=== PATIENT | female | born 1995 ===

== ENCOUNTER 2018-03-17 07:35 | Outpatient (CLI) | payer OTHER | END 2018-03-17 07:36 | disposition home or self-care (01) | LOC: BICULT 07:35 | PROVIDERS: ATTEND Family Medicine | DX: O44.43 Low lying placenta NOS or without hemorrhage, third trimester (principal); Z3A.35 35 weeks gestation of pregnancy | CPT/HCPCS: 76816 ==

== ENCOUNTER 2018-04-02 06:31 | Outpatient (CLI) | payer OTHER | END 2018-04-02 06:32 | disposition home or self-care (01) | LOC: BICULT 06:31 | PROVIDERS: ATTEND Family Medicine | DX: O09.893 Supervision of other high risk pregnancies, third trimester (principal); Z3A.37 37 weeks gestation of pregnancy | CPT/HCPCS: 76816 ==

== ENCOUNTER 2018-04-21 03:37 | Inpatient (IN) | payer OTHER ==
[2018-04-21 04:04] VITALS: BMI 47.3
[2018-04-21] MEDS: Lactated Ringer's 1,000 ML IV SCH ×3 (04:44→11:36)
[2018-04-21] MEDS ORDERED: Butorphanol Tartrate 1 MG/ML VIAL SLOW IVP PRN ×2 (04:53→05:25)
[2018-04-21] MEDS ORDERED: Ibuprofen 800 MG TAB PO PRN (05:00)
[2018-04-21] MEDS ORDERED: NS / Oxytocin 40 units/1000ml 1,000 ML IV SCH ×2 (05:00→20:12)
[2018-04-21] MEDS ORDERED: HYDROcodone/Acetaminophen 5/325 mg Tablet PO PRN ×4 (05:00→20:12)
[2018-04-21] MEDS ORDERED: Misoprostol 200 MCG TAB RC PRN (05:00)
[2018-04-21] MEDS ORDERED: Methylergonovine 0.2 MG/ML VIAL IM PRN (05:00)
[2018-04-21] MEDS ORDERED: NS w/ Oxytocin 10 units 500 ML IV SCH ×2 (05:00)
[2018-04-21] MEDS ORDERED: Lidocaine 1% (PF) 30 ML VIAL SC PRN (05:00)
[2018-04-21] MEDS ORDERED: Carboprost 250 MCG/ML AMP IM PRN (05:00)
[2018-04-21 05:03] LABS: Hemoglobin 13.7 g/dL (12.0-16.0); Mean Corpuscular HGB CONC 33.2 g/dL (32.0-36.0); Mean Corpuscular Hemoglobin 29.1 pg (27.0-31.0); Mean Corpuscular Volume 87.7 fL (78.0-98.0); Mean Platelet Volume 9.1 fL (7.4-10.4); Platelet Count 272 thou/uL (130-400); RBC Distribution Width 12.6 % (11.5-14.5); Red Blood Cell (RBC) Count 4.71 mill/uL (4.20-5.40); White Blood Cell (WBC) Count 10.7 thou/uL (4.8-10.8)
[2018-04-21] MEDS ORDERED: Lactated Ringer's 1,000 ML IV PRN (05:25)
[2018-04-21] MEDS ORDERED: Ondansetron HCl/PF 4 MG/2 ML Vial IVP PRN ×3 (05:25→20:12)
[2018-04-21] MEDS ORDERED: Promethazine HCl 25 MG/ML VIAL IM PRN ×2 (05:25→08:08)
[2018-04-21 05:35] LABS: HBSAg Index 0.12 S/CO (0-0.99); Hep B Surf Ag Non-Reactive S/CO (NonReactive)
[2018-04-21 05:39] LABS: Syphilis Antibody Nonreactive (Nonreactive); Syphilis Antibody Index 0.02 S/CO (<1.00 Non-Reactive)
[2018-04-21] MEDS ORDERED: Fentanyl 4 mcg/Bup 0.1% Cadd 100 ML ONE (07:12)
[2018-04-21] MEDS ORDERED: Acetaminophen 325 MG TAB PO PRN (08:08)
[2018-04-21] MEDS ORDERED: Naloxone HCl 0.4 mg/ml Vial IVP PRN ×2 (08:08)
[2018-04-21] MEDS ORDERED: Lactated Ringer's 500 ML IV PRN (08:08)
[2018-04-21] MEDS ORDERED: Eucerin (Mineral Oil/Petrolatum,White) 30 gm Jar TOP PRN (08:08)
[2018-04-21] MEDS ORDERED: diphenhydrAMINE 50 MG/ML VIAL IVP PRN (08:08)
[2018-04-21] MEDS ORDERED: ePHEDrine/0.9% NaCl/PF SYRINGE 50 mg/10 ml SLOW IVP PRN (08:08)
[2018-04-21] MEDS ORDERED: fentaNYL Citrate/PF 400 MCG, Bupivacaine 0.5% 20 ML in Sodium Chloride 0.9% 72 ML EPIDURAL SCH (08:15)
[2018-04-21] MEDS ORDERED: Communication Order-Pharmacy FS SCH (08:15)
[2018-04-21] MEDS ORDERED: Misoprostol 200 MCG TAB PO SCH (17:20)
[2018-04-21] MEDS ORDERED: Bisacodyl 10 MG SUPP PR PRN (20:12)
[2018-04-21] MEDS ORDERED: Benzocaine/Menthol 20-0.5% 60 ML CAN TOP PRN (20:12)
[2018-04-21] MEDS ORDERED: Milk Of Magnesia 30 ML UDCUP PO PRN (20:12)
[2018-04-21] MEDS ORDERED: Preparation H Ointment 28 GM TUBE PR PRN (20:12)
[2018-04-21] MEDS ORDERED: diphenhydrAMINE 25 MG CAP PO PRN (20:12)
[2018-04-21] MEDS ORDERED: Lanolin Ointment 7 GM TUBE TOP PRN (20:12)
[2018-04-21] MEDS: Docusate Calcium (SURFAK) 240 MG CAP PO SCH (21:11)
[2018-04-21] MEDS: Ibuprofen 800 MG TAB PO SCH (21:11)
[2018-04-22] MEDS: Ibuprofen 800 MG TAB PO SCH ×3 (06:03→21:19)
[2018-04-22 06:14] LABS: Mean Corpuscular Hemoglobin 29.4 pg (27.0-31.0); Mean Corpuscular Volume 89.1 fL (78.0-98.0); Mean Platelet Volume 9.1 fL (7.4-10.4); Platelet Count 235 thou/uL (130-400); RBC Distribution Width 12.4 % (11.5-14.5); Red Blood Cell (RBC) Count 4.07 mill/uL (4.20-5.40); White Blood Cell (WBC) Count 11.6 thou/uL (4.8-10.8)
[2018-04-22] MEDS: Ferrous Sulfate 325 MG TAB PO SCH ×2 (07:46→17:38)
[2018-04-22] MEDS: Prenatal Vitamin 1 TAB PO SCH (08:42)
[2018-04-22] MEDS: Docusate Calcium (SURFAK) 240 MG CAP PO SCH ×2 (08:42→21:19)
[2018-04-23] MEDS: Ibuprofen 800 MG TAB PO SCH ×2 (05:02→14:09)
[2018-04-23 07:58] VITALS: BP 137/83; TEMP 98.7
[2018-04-23] MEDS: Ferrous Sulfate 325 MG TAB PO SCH (08:15)
[2018-04-23] MEDS: Docusate Calcium (SURFAK) 240 MG CAP PO SCH (08:51)
[2018-04-23] MEDS: Prenatal Vitamin 1 TAB PO SCH (08:51)
[2020-04-21] MEDS ORDERED: Bupivacaine 0.25% HCL 30 ML VIAL ONE (21:00)
[2020-04-21] MEDS ORDERED: Bupivacaine HCl 0.5%/Epinephrine 1:200,000/PF 30 ml Vial ONE (21:00)
== END 2018-04-23 15:30 | disposition home or self-care (01) | DRG 807 ==
LOC: L&D/OP 03:37 → L&D 04:04 → 3SW 19:59
PROVIDERS: ADMIT Family Medicine; ATTEND Family Medicine
PROC: 10E0XZZ Delivery of Products of Conception, External Approach (ICD-10-PCS; principal; 2018-04-21)
PROC: 4A0HXCZ Measurement of Products of Conception, Cardiac Rate, External Approach (ICD-10-PCS; 2018-04-21)
DX: O66.0 Obstructed labor due to shoulder dystocia (principal); Z37.0 Single live birth; Z3A.38 38 weeks gestation of pregnancy
CPT/HCPCS: 36415; 51702; 85027; 86780; 86850; 86900; 86901; 87340; 99285; J0670; J2001; S0020

== ENCOUNTER 2019-04-05 09:35 | Emergency (ER) | payer OTHER ==
[2019-04-05] MEDS ORDERED: Proparacaine 0.5% Opth 15 ML BOT ONE (09:58)
[2019-04-05] MEDS ORDERED: Fluorescein Opthalmic Strip ONE (09:58)
== END 2019-04-05 10:23 | disposition short-term general hospital (02) ==
LOC: ERS 09:35
DX: S05.02XA Injury of conjunctiva and corneal abrasion without foreign body, left eye, initial encounter (principal); W22.8XXA Striking against or struck by other objects, initial encounter
CPT/HCPCS: 99283

== ENCOUNTER 2020-11-08 14:59 | Outpatient (CLI) | payer OTHER | END 2020-11-08 15:00 | disposition home or self-care (01) | LOC: BICCT 14:59 | PROVIDERS: ATTEND Psychiatry & Neurology Neurology | DX: S06.890A Other specified intracranial injury without loss of consciousness, initial encounter (principal) | CPT/HCPCS: 70450 ==